=== PATIENT | male | born 1990 | race Caucasian/White ===

== ENCOUNTER 2016-06-22 17:14 | Emergency (ER) | payer SELFPAY ==
[~2016-06-22] VITALS: Wt 70.0 kg
[2016-06-22] MEDS ORDERED: IBUP800T25 PO (17:31)
[2016-06-22] MEDS ORDERED: HYDR-902 PO (17:32)
[2016-06-22] MEDS ORDERED: AMOX1TAB10 PO (17:32)
[2016-06-22] MEDS ORDERED: HYDR-906 PO (17:42)
--- NOTE | 2016-06-22 17:51 | ERD ---
ER Documentation Chief Complaint Date/Time DATE: 06/22/16 TIME: 17:48 Chief Complaint r lower dental pain for 5 days. HPI This is a 25-year-old male who presents to the emergency department today complaining of a cracked tooth. Patient states that he has had dental pain for the past 5 days. States he moved here from [place] and does not currently have insurance. Denies any fevers or chills. ROS All systems reviewed and are negative except as per history of present illness. Medications Home Meds Active Scripts Hydrocodone/Acetaminophen ([place] 5-325 Tablet) 1 Each Tablet, 1 TAB PO Q6H Y for PAIN, #15 TAB Prov:ANMOL FERGUSON MD 06/22/16 Amoxicillin/Potassium Clav (Amox-Clav 875-125 mg Tablet) 875-125 mg Tab, 1 TAB PO BID for 10 Days, #20 TAB Prov:ALEX MORENO PA-C 06/22/16 Ibuprofen* (Motrin*) 800 Mg Tab, 800 MG PO Q6, #30 TAB Prov:ALEX MORENO PA-C 06/22/16 Discontinued Scripts Hydrocodone/Acetaminophen ([place] 10-325 Tablet) 1 Each Tablet, 1 TAB PO Q6H Y for PAIN, #20 TAB Prov:ALEX MORENOC 06/22/16 Physical Exam Vitals Vital Signs Date Time Temp Pulse Resp B/P Pulse Ox O2 Delivery O2 Flow Rate FiO2 06/22/16 17:16 98.5 54 20 129/78 98 Physical Exam Const: No acute distress Head: Atraumatic Eyes: Normal Conjunctiva ENT: Ears TMs normal. Nose no drainage. Throat no erythema no exudate. Right lower incisor with fracture Neck: Full range of motion..~ No meningismus. Resp: Clear to auscultation bilaterally Cardio: Regular rate and rhythm, no murmurs Abd: Soft, non tender, non distended. Normal bowel sounds Skin: No petechiae or rashes Neur: Awake and alert Psych: Normal Mood and Affect Procedures/MDM This 25-year-old male who presents to the emergency department today complaining of right-sided pain for the past 5 days. On physical exam patient did have a fracture on his right lower incisor. Patient recently here from [place] and stated that he did not have any access to medical care at this time. Patient's girlfriend did indicate that she has tried to take in to [facility] but they would not give her pain plans and there were only wanting money up front. At this time I have low suspicion for abscess, deep space tracking infection or sepsis. Patient is afebrile and otherwise well-appearing. There is no evidence of swelling. Patient will be given a prescription for Augmentin, Motrin and a short course of [place]. I explained to the patient he does need to see the dentist. I did give him referral information for [facility] dentist. I did offer the patient pain medication here in the emergency department he was okay with going home with his prescription and not being medicated here in the emergency department as he was seen here in [facility]. I have also explained to the patient that he would not be given multiple prescriptions for repeat visits for dental pain in the emergency department and that he really does need to see a dentist and primary care physician. Patient understood At this time the patient is stable for discharge and outpatient management. Patient should follow up with their PCP in the next 1-2 days. They may return to the emergency department sooner for any persistent or worsening of symptoms. Patient understood and agreed with the plan. Departure Diagnosis: Primary Impression: Pain, dental Condition: Fair Patient Instructions: Dental Pain Referrals: [facility] ([facility]) Additional Instructions: Call your primary care doctor TOMORROW for an appointment during the next 1-2 days.See the doctor sooner or return here if your condition worsens before your appointment time. Make an appointment at [facility] dentist Take [place] for severe pain otherwise take Motrin or Naprosyn or Tylenol Take antibiotics as prescribed ALEX MORENO PA-C Jun 22, 2016 17:51
== END 2016-06-22 17:47 | disposition home or self-care (01) ==
LOC: E/R 17:14
DX: K08.89 Other specified disorders of teeth and supporting structures (principal)
CPT/HCPCS: 99284